=== PATIENT | female | born 1975 | race Caucasian/White ===

== ENCOUNTER 2017-12-05 11:29 | Emergency (ER) | payer OTHER ==
[2017-12-05 11:58] VITALS: BP 116/64
--- NOTE | 2017-12-05 12:24 | UC ---
Ear Complaint HPI - HPI Summary HPI Summary: Bilat ears clogged, achy. Gets cerumen impaction regularly, needs flush every year or so. Denies recent illness, fever, or drainage. - History of Current Complaint Chief Complaint: UCEar Stated Complaint: BILATERAL EAR COMPLAINT Time Seen by Provider: 12/05/17 12:07 Hx Obtained From: Patient Hx Last Menstrual Period: 11/21/17 ?: No Onset/Duration: Gradual Onset, Lasting Days Severity Initially: Mild Severity Currently: Mild Pain Intensity: 7 Associated Signs/Symptoms: Positive: Hearing Loss. Negative: Swelling @, URI Symptoms - Allergies/Home Medications Allergies/Adverse Reactions: Allergies Allergy/AdvReac Type Severity Reaction Status Date / Time cefaclor [From [facility]] Allergy Unknown Verified 12/05/17 11:55 Reaction Details Penicillins Allergy Unknown Verified 12/05/17 11:55 Reaction Details Sulfa (Sulfonamide Allergy Unknown Verified 12/05/17 11:55 Antibiotics) Reaction Details MYCINS Allergy Unknown Uncoded 12/05/17 11:55 Reaction Details Home Medications: Home Medications NK [No Home Medications Reported] 12/05/17 [History Confirmed 12/05/17] PMH/Surg Hx/FS Hx/Imm Hx Previously Healthy: Yes - Surgical History Surgical History: Yes Surgery Procedure, Year, and Place: TUBES IN EARS @ 7Y/O. BACK SURGERY - Family History Known Family History: Positive: Hypertension - Social History Lives: With Family Alcohol Use: None Substance Use Type: None Smoking Status (MU): Never Smoked Tobacco Review of Systems Constitutional: Negative Skin: Negative Eyes: Negative ENT: Ear Ache Respiratory: Negative Cardiovascular: Negative Gastrointestinal: Negative Genitourinary: Negative Motor: Negative Neurovascular: Negative Musculoskeletal: Negative Neurological: Negative Psychological: Negative Is Patient Immunocompromised?: No All Other Systems Reviewed And Are Negative: Yes Physical Exam Triage Information Reviewed: Yes Appearance: Well-Appearing, No Pain Distress, Well-Nourished Vital Signs: Initial Vital Signs Temp 99.0 F 12/05/17 11:51 Pulse 65 12/05/17 11:51 Resp 16 12/05/17 11:51 BP 116/64 12/05/17 11:51 Pulse Ox 100 12/05/17 11:51 Vital Signs Reviewed: Yes Eye Exam: Normal Eyes: Positive: Conjunctiva Clear ENT: Positive: Hearing grossly normal, Pharynx normal, Pharyngeal erythema, TMs normal - post flush, Other - bilat cerumen impaction prior to flush. Negative: Nasal congestion, TM bulging Dental Exam: Normal Neck exam: Normal Neck: Positive: Supple, Nontender, No Lymphadenopathy Respiratory Exam: Normal Respiratory: Positive: Chest non-tender, Lungs clear, Normal breath sounds, No respiratory distress, No accessory muscle use Cardiovascular Exam: Normal Cardiovascular: Positive: RRR, No Murmur Musculoskeletal Exam: Normal Neurological Exam: Normal Neurological: Positive: Alert Psychological Exam: Normal Skin Exam: Normal Ear Complaint Course/Dx - Differential Dx/Diagnosis Provider Diagnoses: bilat cerumen impaction Discharge - Sign-Out/Discharge Documenting (check all that apply): Patient Departure - Discharge Plan Condition: Stable Disposition: HOME Patient Education Materials: Cerumen Impaction (ED) Referrals: No Primary Care Phys,NOPCP [Primary Care Provider] - - Billing Disposition and Condition Condition: STABLE Disposition: Home
== END 2017-12-05 12:28 | disposition home or self-care (01) ==
LOC: UCCORT 11:29
DX: H61.23 Impacted cerumen, bilateral (principal); Z88.0 Allergy status to penicillin; Z88.1 Allergy status to other antibiotic agents
CPT/HCPCS: 99201; G0463